=== PATIENT | male | born 1955 | race Hispanic/Latino ===

== ENCOUNTER 2016-06-25 10:43 | Outpatient (CLI) | payer BC, MEDICARE ==
[2016-06-25 12:29] LABS: Hemoglobin A1c 4.6 % (4.0-6.0)
[2016-06-25 12:46] LABS: Cardiac Risk 3.5 (Less than 4.5)
== END 2016-06-25 10:44 | disposition home or self-care (01) ==
LOC: NAVSJIPCSP 10:43
PROVIDERS: ATTEND Internal Medicine
DX: E11.22 Type 2 diabetes mellitus with diabetic chronic kidney disease (principal); I11.9 Hypertensive heart disease without heart failure
CPT/HCPCS: 36415; 80061; 83036

== ENCOUNTER 2016-10-02 10:33 | Outpatient (CLI) | payer BC, MEDICARE ==
[2016-10-02 12:33] LABS: #Basophils 0.1 thou/uL (0.0-0.2); #Eosinphils 0.1 thou/uL (0.0-0.7); #Lymphocytes 1.9 thou/uL (1.20-3.40); #Neutrophils 4.5 thou/uL (1.40-6.50); %Basophils 1.2 % (0.0-1.0); %Eosinophils 1.8 % (0.0-10.0); %Lymphocytes 25.3 % (21.0-51.0); %Monocytes 12.5 % (0.0-10.0); %Neutrophils 59.2 % (42.0-75.0); Hemoglobin 9.3 g/dL (14.0-18.0); Mean Corpuscular Hemoglobin 30.6 pg (27.0-31.0); Mean Corpuscular Volume 92.7 fl (80.0-94.0); Mean Platelet Volume 6.8 fL (7.4-10.4); Platelet Count 276 thou/uL (130-400); RBC Distribution Width 14.1 % (11.5-14.5); Red Blood Cell (RBC) Count 3.03 mill/uL (4.70-6.10); White Blood Cell (WBC) Count 7.6 thou/uL (4.8-10.8)
[2016-10-02 13:05] LABS: Hemoglobin A1c 5.7 % (4.0-6.0)
[2016-10-02 13:13] LABS: ALT (SGPT) 19 U/L (8-55); AST (SGOT) 15 U/L (5-34); Albumin 4.3 g/dL (3.5-5.0); Alkaline Phosphatase 221 U/L (40-150); Anion Gap 19 mmol/L (10-20); BUN (Urea Nitrogen) 37 mg/dL (8.4-25.7); Bilirubin, Total 0.4 mg/dL (0.2-1.2); Calc. Creatinine Clearance 0 mL/min (70-130); Carbon Dioxide 31 mmol/L (22-29); Cardiac Risk 4.5 (Less than 4.5); Chloride 94 mmol/L (98-107); Cholesterol 188 mg/dl (< 200 Desired); Estimated GFR-MDRD 7; Globulin 3.3 g/dL (2.4-3.5); Glucose 75 mg/dL (70-105); HDL Cholesterol 42 mg/dL (>60 Neg Risk); LDL Cholesterol, Calculated 116 mg/dL; Potassium 5.3 mmol/L (3.5-5.1); Protein, Total 7.6 g/dL (6.0-8.3); Sodium 139 mmol/L (136-145); Triglycerides 152 mg/dL (Less than 150)
== END 2016-10-02 10:34 | disposition home or self-care (01) ==
LOC: NAVSJIPCSP 10:33
PROVIDERS: ATTEND Internal Medicine
DX: Z12.5 Encounter for screening for malignant neoplasm of prostate (principal); E11.22 Type 2 diabetes mellitus with diabetic chronic kidney disease; I11.9 Hypertensive heart disease without heart failure; N18.5 Chronic kidney disease, stage 5; E78.5 Hyperlipidemia, unspecified
CPT/HCPCS: 36415; 80053; 80061; 83036; 85025; G0103

== ENCOUNTER 2016-12-31 10:23 | Outpatient (CLI) | payer BC, MEDICARE ==
[2016-12-31 13:01] LABS: Cardiac Risk 4.1 (Less than 4.5)
== END 2016-12-31 10:24 | disposition home or self-care (01) ==
LOC: NAVSJIPCSP 10:23
PROVIDERS: ATTEND Internal Medicine
DX: E78.5 Hyperlipidemia, unspecified (principal)
CPT/HCPCS: 36415; 80061

== ENCOUNTER 2017-07-06 12:25 | Emergency (ER) | payer MEDICARE, BC ==
[2017-07-06 13:21] LABS: ALT (SGPT) 13 U/L (8-55); AST (SGOT) 16 U/L (5-34); Albumin 4.1 g/dL (3.5-5.0); Alkaline Phosphatase 108 U/L (40-150); Anion Gap 18 mmol/L (10-20); BUN (Urea Nitrogen) 16 mg/dL (8.4-25.7); Bilirubin, Total 0.7 mg/dL (0.2-1.2); Calc. Creatinine Clearance 0 mL/min (70-130); Calcium 9.8 mg/dL (7.8-10.44); Carbon Dioxide 29 mmol/L (22-29); Chloride 96 mmol/L (98-107); Estimated GFR-MDRD 10; Globulin 3.7 g/dL (2.4-3.5); Glucose 106 mg/dL (70-105); Potassium 4.3 mmol/L (3.5-5.1); Protein, Total 7.8 g/dL (6.0-8.3); Sodium 139 mmol/L (136-145)
[2017-07-06 13:41] LABS: Eosinophils 2 % (0-10); Hemoglobin 11.9 g/dL (14.0-18.0); Hypochromia SLIGHT = 6-15 cells (100X) (0-5/hpf); Lymphocytes 16 % (21-51); MDiff Complete? YES; Mean Corpuscular HGB CONC 32.9 g/dL (32.0-36.0); Mean Corpuscular Hemoglobin 30.3 pg (27.0-31.0); Mean Corpuscular Volume 91.9 fl (80.0-94.0); Mean Platelet Volume 6.5 fL (7.4-10.4); Monocytes 13 % (0-10); Neutrophil 66 % (42-75); PLT Morphology Comment Appears Adequate; Platelet Count 238 thou/uL (130-400); RBC Distribution Width 15.7 % (11.5-14.5); Reactive Lymphocytes 3 % (0-10); Red Blood Cell (RBC) Count 3.93 mill/uL (4.70-6.10); White Blood Cell (WBC) Count 5.8 thou/uL (4.8-10.8)
--- NOTE | 2017-07-06 14:05 | ULT ---
RIGHT LOWER EXTREMITY VENOUS ULTRASOUND WITH DOPPLER: HISTORY: Right leg swelling. Status post nephrectomy. Edema. COMPARISON: None. TECHNIQUE: Lopez scale, color flow, Doppler imaging with spectral waveform analysis was performed of the right lo wer extremity venous system. FINDINGS: There is compressibility, presence of flow, and augmentation in the common femoral vein, femoral vein , and popliteal vein. There is flow in the greater saphenous vein, profunda vein, and posterior tibi al vein. Incidental image of the left iliac vein demonstrates patency, flow, and augmentation. IMPRESSION: No evidence of thrombus in the right lower extremity deep venous system. POS: [facility]
== END 2017-07-06 14:42 | disposition home or self-care (01) ==
LOC: NAV ERS 12:25
DX: I12.0 Hypertensive chronic kidney disease with stage 5 chronic kidney disease or end stage renal disease (principal); N18.6 End stage renal disease; Z79.891 Long term (current) use of opiate analgesic; Z79.01 Long term (current) use of anticoagulants; Z79.899 Other long term (current) drug therapy; M79.604 Pain in right leg
CPT/HCPCS: 36415; 80053; 85025; 85379